=== PATIENT | male | born 1975 | race Caucasian/White ===

== ENCOUNTER 2017-06-08 18:54 | Inpatient (IN) | payer OTHER ==
[~2017-06-08] VITALS: Ht 188 cm; Wt 113.6 kg
[2017-06-08] MEDS ORDERED: ONDANSETRON ODT 4 MG ONE (19:23)
[2017-06-08] MEDS ORDERED: OXYcodone/APAP 10/325MG TABLET ONE (19:25)
[2017-06-08] MEDS ORDERED: OXYcodone/APAP 10/325MG TABLET PO ONE (19:30)
[2017-06-08] MEDS ORDERED: ONDANSETRON ODT 4 MG PO ONE (19:30)
[2017-06-08] MEDS ORDERED: SODIUM CHLORIDE FLUSH 10ML SYR IVF ONE (20:00)
[2017-06-08] MEDS ORDERED: LORazepam 2 MG/ML, 1ML ONE (20:04)
[2017-06-08] MEDS ORDERED: LORazepam 2 MG/ML, 1ML IVPush ONE (20:30)
[2017-06-08 20:41] LABS: HEMATOCRIT 46.3 % (39.2-51.8); HEMOGLOBIN 15.8 g/dL (13.7-18.0); WHITE BLOOD COUNT 11.3 x10^3/uL (3.4-10)
[2017-06-08] MEDS ORDERED: OMEP20TA62 PO (20:49)
[2017-06-08 20:51] LABS: BLOOD UREA NITROGEN 13 mg/dL (7-18)
[2017-06-08] MEDS ORDERED: SODIUM CHLORIDE 0.9% 1,000 ML IV SCH (21:02)
[2017-06-08] MEDS ORDERED: ACETAMINOPHEN 325 MG TABLET PO PRN (21:30)
[2017-06-08] MEDS ORDERED: morphine SULFATE 10 MG/ML, 1ML IVPush PRN (21:30)
[2017-06-08] MEDS ORDERED: DOCUSATE 100 MG CAPSULE PO PRN (21:30)
[2017-06-08] MEDS ORDERED: PROMETHAZINE 25 MG/ML, 1ML IM PRN (21:30)
[2017-06-08] MEDS ORDERED: BISACODYL 10 MG SUPP PR PRN (21:30)
[2017-06-08] MEDS ORDERED: METOCLOPRAMIDE 5 MG/ML, 2ML IVPush PRN (21:30)
[2017-06-08] MEDS ORDERED: POLYETHYLENE GLYCOL 17 GM PACKET PO PRN (21:30)
[2017-06-08] MEDS ORDERED: ONDANSETRON 2MG/ML, 2ML IVPush PRN (21:30)
[2017-06-08] MEDS ORDERED: hydrALAzine 20 MG/ML, 1ML IVPush PRN (21:30)
[2017-06-08 23:00] VITALS: BP 132/80
[2017-06-09 02:05] VITALS: BP 125/77
[2017-06-09 06:00] LABS: HEMATOCRIT 43.8 % (39.2-51.8); HEMOGLOBIN 14.8 g/dL (13.7-18.0); WHITE BLOOD COUNT 8.6 x10^3/uL (3.4-10)
[2017-06-09 06:07] LABS: BLOOD UREA NITROGEN 12 mg/dL (7-18)
[2017-06-09 08:11] VITALS: BP 132/83
[2017-06-09] MEDS: OXYcodone IR 5MG TABLET PO PRN ×3 (08:34→17:46)
[2017-06-09 15:00] VITALS: BP 134/91
[2017-06-09] MEDS ORDERED: OXYC-229 PO (17:19)
== END 2017-06-09 18:10 | disposition home or self-care (01) | DRG 84 ==
LOC: ED 20:00 → EDIP 20:03 → ED 20:12 → 3NE 21:45
DX: S06.5X9A Traumatic subdural hemorrhage with loss of consciousness of unspecified duration, initial encounter (principal); D72.829 Elevated white blood cell count, unspecified; S02.19XA Other fracture of base of skull, initial encounter for closed fracture; S06.2X9A Diffuse traumatic brain injury with loss of consciousness of unspecified duration, initial encounter; F12.90 Cannabis use, unspecified, uncomplicated; K21.9 Gastro-esophageal reflux disease without esophagitis; W21.07XA Struck by softball, initial encounter; Y92.320 Baseball field as the place of occurrence of the external cause; Y93.64 Activity, baseball; Z82.3 Family history of stroke
CPT/HCPCS: 36415; 70450; 80048; 82040; 85025; 85610; 85730; 96374; J2405; Q0162; J2060; J7030

== ENCOUNTER → 2017-07-08 | Outpatient (CLI) | payer OTHER ==
[~2017-07-08] MED LIST: OMEP20TA62 PO; OXYC-307 PO
== END | disposition home or self-care (01) ==
LOC: CFH 08:46
PROVIDERS: ATTEND Nurse Practitioner
DX: S02.91XS Unspecified fracture of skull, sequela (principal); S06.5X9S Traumatic subdural hemorrhage with loss of consciousness of unspecified duration, sequela; X58.XXXS Exposure to other specified factors, sequela
CPT/HCPCS: 70450

== ENCOUNTER 2017-09-08 08:22 | Day surgery (SDC) | payer OTHER | END 2017-09-08 08:59 | disposition home or self-care (01) | LOC: OUT 08:22 | PROVIDERS: ATTEND Surgery | DX: Z02.9 Encounter for administrative examinations, unspecified (principal) ==

== ENCOUNTER 2017-09-14 05:25 | Day surgery (SDC) | payer OTHER ==
[~2017-09-14] VITALS: Ht 188 cm; Wt 113.6 kg
[2017-09-14 06:11] VITALS: BP 132/90
[2017-09-14 06:17] VITALS: BP 132/90
[2017-09-14] MEDS ORDERED: BUPIVACAINE/PF 0.5% ONE (06:19)
[2017-09-14] MEDS ORDERED: EPINEPHRINE 1 MG/ML, 1ML ONE (06:19)
[2017-09-14] MEDS ORDERED: LACTATED RINGERS 1,000 ML IV SCH (06:41)
[2017-09-14] MEDS ORDERED: FENTANYL PF 100 MCG/2ML ONE ×2 (06:55)
[2017-09-14] MEDS ORDERED: MIDAZOLAM 1 MG/ML, 2ML ONE (06:55)
[2017-09-14] MEDS ORDERED: PROPOFOL 10 MG/ML, 20ML ONE ×2 (06:55→07:22)
[2017-09-14] MEDS ORDERED: ROCURONIUM 10 MG/ML,10ML ONE ×2 (06:56→07:15)
[2017-09-14] MEDS ORDERED: SUCCINYLCHOLINE 20 MG/ML, 10ML ONE (06:56)
[2017-09-14] MEDS ORDERED: ONDANSETRON 2MG/ML, 2ML ONE ×2 (07:01)
[2017-09-14] MEDS ORDERED: DEXAMETHASONE 4 MG/ML, 1ML ONE ×2 (07:01)
[2017-09-14] MEDS ORDERED: CEFAZOLIN 1,000 MG ONE ×2 (07:01)
[2017-09-14] MEDS ORDERED: ALBUTEROL SULFATE 2.5 MG/3 ML NPPB PRN (07:30)
[2017-09-14] MEDS ORDERED: FENTANYL PF 100 MCG/2ML IV PRN (07:30)
[2017-09-14] MEDS ORDERED: HYDROmorphone 1 MG/ML, 1ML IV PRN (07:30)
[2017-09-14] MEDS ORDERED: MEPERIDINE/PF 25MG/0.5ML IVPush PRN (07:30)
[2017-09-14] MEDS ORDERED: ACETAMINOPHEN 325 MG TABLET PO PRN (07:30)
[2017-09-14] MEDS ORDERED: hydrALAzine 20 MG/ML, 1ML IV PRN (07:30)
[2017-09-14] MEDS ORDERED: LABETALOL 5MG/ML, 20ML IV PRN (07:30)
[2017-09-14] MEDS ORDERED: MIDAZOLAM 1 MG/ML, 2ML IV PRN (07:30)
[2017-09-14] MEDS ORDERED: PROMETHAZINE 25 MG/ML, 1ML IV PRN (07:30)
[2017-09-14] MEDS ORDERED: ONDANSETRON 2MG/ML, 2ML IVPush PRN (07:30)
[2017-09-14] MEDS ORDERED: OXYcodone 5 MG/5 ML ORAL.SOL UDC PO PRN (07:30)
== END 2017-09-14 10:05 | disposition home or self-care (01) ==
LOC: OUT 05:25
PROVIDERS: ATTEND Surgery
DX: I72.8 Aneurysm of other specified arteries (principal); Z72.89 Other problems related to lifestyle; Z87.891 Personal history of nicotine dependence; K21.9 Gastro-esophageal reflux disease without esophagitis
CPT/HCPCS: 37609; 88305; J0171; J0330; J0690; J1100; J2250; J2405; J2704; J3010; J3490; J7120

== ENCOUNTER → 2020-11-05 | Outpatient (CLI) | payer OTHER ==
[~2020-11-05] MED LIST changes: +BUPR300T94 PO; +SERT100T PO; +TRAZ50TA66 PO
== END | disposition home or self-care (01) ==
LOC: STAR 09:14
PROVIDERS: ATTEND Orthopaedic Surgery
DX: Z20.828 Contact with and (suspected) exposure to other viral communicable diseases (principal); M75.51 Bursitis of right shoulder; M75.41 Impingement syndrome of right shoulder; S43.431A Superior glenoid labrum lesion of right shoulder, initial encounter; X58.XXXA Exposure to other specified factors, initial encounter; Y93.89 Activity, other specified; Y92.89 Other specified places as the place of occurrence of the external cause; Y99.8 Other external cause status
CPT/HCPCS: 87635

== ENCOUNTER 2021-02-06 10:42 | Day surgery (SDC) | payer OTHER ==
[~2021-02-06] VITALS: Ht 188 cm; Wt 107.7 kg
[~2021-02-06 10:42] MED LIST changes: -OXYC-307 PO; +OXYC-380 PO
[2021-02-06] MEDS ORDERED: LIDOCAINE/PF 1%, 30ML ONE (11:32)
[2021-02-06] MEDS ORDERED: EPINEPHRINE 1 MG/ML, 1ML ONE (11:32)
[2021-02-06] MEDS ORDERED: FENTANYL PF 250 MCG/5ML ONE (11:37)
[2021-02-06] MEDS ORDERED: MIDAZOLAM 1 MG/ML, 2ML ONE (11:37)
[2021-02-06 11:49] VITALS: BP 145/98
[2021-02-06] MEDS ORDERED: LACTATED RINGERS 1,000 ML IV SCH (12:00)
[2021-02-06] MEDS ORDERED: CHLORHEXIDINE 15 ML UDC PO ONE (12:00)
[2021-02-06] MEDS ORDERED: ROCURONIUM 10 MG/ML,10ML ONE (12:25)
[2021-02-06] MEDS ORDERED: CEFAZOLIN 1,000 MG ONE ×2 (12:39)
[2021-02-06] MEDS ORDERED: DEXAMETHASONE 4 MG/ML, 1ML ONE (12:41)
[2021-02-06] MEDS ORDERED: CLINDAMYCIN 150 MG/ML, 6ML ONE (12:44)
[2021-02-06] MEDS ORDERED: ONDANSETRON 2MG/ML, 2ML IVPush PRN (13:00)
[2021-02-06] MEDS ORDERED: LABETALOL 5MG/ML, 20ML IV PRN (13:00)
[2021-02-06] MEDS ORDERED: PROPOFOL 10 MG/ML, 20ML ONE (13:00)
[2021-02-06] MEDS ORDERED: ACETAMINOPHEN 325 MG TABLET PO PRN (13:00)
[2021-02-06] MEDS ORDERED: FENTANYL PF 100 MCG/2ML IV PRN (13:00)
[2021-02-06] MEDS ORDERED: MEPERIDINE/PF 25MG/0.5ML IVPush PRN (13:00)
[2021-02-06] MEDS ORDERED: hydrALAzine 20 MG/ML, 1ML IV PRN (13:00)
[2021-02-06] MEDS ORDERED: ONDANSETRON 2MG/ML, 2ML ONE (13:00)
[2021-02-06] MEDS ORDERED: HYDROmorphone 1 MG/ML, 1ML INJ IVPush PRN (13:00)
[2021-02-06] MEDS ORDERED: PROMETHAZINE 25 MG/ML, 1ML IVPush PRN (13:00)
[2021-02-06] MEDS ORDERED: OXYcodone 5 MG/5 ML ORAL.SOL UDC PO PRN (13:00)
[2021-02-06] MEDS ORDERED: BUPIVACAINE/PF 0.5% ONE (13:12)
[2021-02-06] MEDS ORDERED: hydrALAzine 20 MG/ML, 1ML ONE (13:21)
== END 2021-02-06 15:32 | disposition home or self-care (01) ==
LOC: OUT 10:42
PROVIDERS: ATTEND Orthopaedic Surgery
DX: S43.431A Superior glenoid labrum lesion of right shoulder, initial encounter (principal); M65.811 Other synovitis and tenosynovitis, right shoulder; M19.011 Primary osteoarthritis, right shoulder; M75.41 Impingement syndrome of right shoulder; M75.51 Bursitis of right shoulder; G89.18 Other acute postprocedural pain; I10 Essential (primary) hypertension; F32.9 Major depressive disorder, single episode, unspecified; Z20.822 Contact with and (suspected) exposure to COVID-19; Z79.899 Other long term (current) drug therapy; W01.0XXA Fall on same level from slipping, tripping and stumbling without subsequent striking against object, initial encounter; Y93.61 Activity, american tackle football; Y92.213 High school as the place of occurrence of the external cause; Y99.8 Other external cause status
CPT/HCPCS: 23430; 29822; 29826; 64415; 87635; C1713; J0171; J0360; J0690; J1100; J2250; J2405; J2704; J3010; J7120